=== PATIENT | male | born 1995 | race Caucasian/White ===

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

== ENCOUNTER 2017-04-28 16:02 | Emergency (ER) | payer OTHER ==
[~2017-04-28] VITALS: Ht 170.2 cm; Wt 83.9 kg
[2017-04-28 16:20] VITALS: BP 157/90
--- NOTE | 2017-04-28 16:46 | PHYS DOC ---
Past History Past Medical History: Other Past Surgical History: Tonsillectomy, Other Smoking: Non-smoker Alcohol Use: None Drug Use: None Adult General Chief Complaint Chief Complaint: WRIST PAIN [facility] HPI Patient is a 21 year old male who presents with complaint of left wrist pain. The patient injured his left wrist approximately 1 hour prior to arrival. The patient states he was traveling on his skateboard when his board flipped forward as he tried to reposition his foot. Patient states he fell forward and caught himself with both hands. Patient states that his left wrist took the majority of the weight of the fall. Patient states that he is having pain mostly at the base of his right thumb and mild pain along the medial aspect of the wrist. Patient states that the pain worsens with movement of the thumb and at the wrist. Patient has not taken any medications to help with symptoms at this time. Patient denies head injury or loss of consciousness. Patient rates his pain currently as 7 out of 10. Review of Systems Review of Systems Constitutional: Denies fever or chills [] Eyes: Denies change in visual acuity, redness, or eye pain [] HENT: Denies nasal congestion or sore throat [] Respiratory: Denies cough or shortness of breath [] Cardiovascular: No additional information not addressed in HPI [] GI: Denies abdominal pain, nausea, vomiting, bloody stools or diarrhea [] : Denies dysuria or hematuria [] Musculoskeletal: Left wrist and thumb pain[] Integument: Denies rash or skin lesions [] Neurologic: Denies headache, focal weakness or sensory changes [] Allergies Allergies Allergies Coded Allergies Type Severity Reaction Last Updated Verified No Known Drug Allergies 04/26/16 No Physical Exam Physical Exam Constitutional: Well developed, well nourished, no acute distress, non-toxic appearance. [] HENT: Normocephalic, atraumatic, bilateral external ears normal, oropharynx moist, no oral exudates, nose normal. [] Eyes: PERRLA, EOMI, conjunctiva normal, no discharge. [] Neck: Normal range of motion, no tenderness, supple, no stridor. [] Cardiovascular:Heart rate regular rhythm, no murmur [] Lungs & Thorax: Bilateral breath sounds clear to auscultation [] Abdomen: Bowel sounds normal, soft, no tenderness, no masses, no pulsatile masses. [] Skin: Warm, dry, no erythema, no rash. [] Back: No tenderness, no CVA tenderness. [] Extremities: No obvious deformity, tenderness to palpation over the anatomical snuffbox of left thumb, pain with axial loading of left thumb, sensation and capillary refill intact in all 5 digits of left hand, no cyanosis, no clubbing. [] Neurologic: Alert and oriented X 3, normal motor function, normal sensory function, no focal deficits noted. [] Current Patient Data Vital Signs Vital Signs Date Time Temp Pulse Resp B/P (MAP) Pulse Ox O2 Delivery O2 Flow Rate FiO2 04/28/17 16:20 98.2 65 22 96 Room Air EKG EKG Not performed[] Radiology/Procedures Radiology/[place] [address] IMAGING REPORT Signed PATIENT: ILANA HUNTER ACCOUNT: [id number] : 1995 LOCATION: ER AGE: 21 SEX: M EXAM STATUS: REG ER ORD. PHYSICIAN: EL CAMPBELL MD REASON: left wrist injury status post fall from skateboard PROCEDURE: WRIST 3V LEFT Exam: Left wrist radiograph 04/28/2017 Indication: Left wrist pain after falling Comparison: Left wrist radiograph 04/26/2016 Technique: 3 views of the left wrist are provided. Findings: There is no acute fracture or dislocation. No joint space narrowing. Mild volar soft tissue swelling. No osseous erosion or soft tissue gas. Bone mineralization is within normal limits. Impression: No acute fracture or dislocation. DICTATED AND SIGNED BY: AG JUAREZ MD DATE: 04/28/17 1658 CC: EL CAMPBELL MD; SNEHA SORIANO MD ~ [] Course & Med Decision Making Course & Med Decision Making Pertinent Labs and Imaging studies reviewed. (See chart for details) Patient's x-rays interpreted as negative, however I remain concerned the patient may have a nondisplaced fracture of the scaphoid bone as patient has snuffbox tenderness on exam and pain with axial loading of the thumb. For this reason, the patient was placed in a thumb spica splint. This was applied by the emergency department nurse. My evaluation post splint application showed normal capillary refill and sensation in all 5 digits of the left hand. Advised patient to follow-up in 10-14 days with his primary doctor for reevaluation and repeat imaging of the left wrist for evaluation of possible fracture. The patient will continue on home medications for her symptoms. Advised return to the emergency department for any worsening symptoms. Patient's mother voiced understanding and in agreement with treatment plan. Dragon Disclaimer Dragon Disclaimer This chart was dictated in whole or in part using Voice Recognition software in a busy, high-work load, and often noisy Emergency Department environment. It may contain unintended and wholly unrecognized errors or omissions. Departure Departure: Impression: Primary Impression: Left wrist injury Disposition: HOME, SELF-CARE Condition: IMPROVED Referrals: SNEHA SORIANO MD (PCP) Patient Instructions: Wrist Pain Additional Instructions: Your exam shows medical findings concerning for a possible fracture of your scaphoid bone, which is a wrist bone connects to your thumb. For this reason he were placed in a splint that will need to remain in place over the next 10-14 days until you have followed up with your doctor for repeat x-ray images. Return to the emergency department for any worsening symptoms. Problem Qualifiers Primary Impression: Left wrist injury Encounter type: initial encounter Qualified Codes: S69.92XA - Unspecified injury of left wrist, hand and finger(s), initial encounter EL CAMPBELL MD Apr 28, 2017 16:46
--- NOTE | 2017-04-28 17:02 | RAD ---
Exam: Left wrist radiograph 04/28/2017 Indication: Left wrist pain after falling Comparison: Left wrist radiograph 04/26/2016 Technique: 3 views of the left wrist are provided. Findings: There is no acute fracture or dislocation. No joint space narrowing. Mild volar soft tissue swelling. No osseous erosion or soft tissue gas. Bone mineralization is within normal limits. Impression: No acute fracture or dislocation.
== END 2017-04-28 17:16 | disposition home or self-care (01) ==
LOC: ER 16:02
DX: S69.92XA Unspecified injury of left wrist, hand and finger(s), initial encounter (principal); V00.131A Fall from skateboard, initial encounter; Y93.51 Activity, roller skating (inline) and skateboarding; Y99.8 Other external cause status; Y92.89 Other specified places as the place of occurrence of the external cause
CPT/HCPCS: 29125; 73110; 99284-25

== ENCOUNTER 2018-09-21 15:11 | Emergency (ER) | payer OTHER ==
[~2018-09-21] VITALS: Ht 170.2 cm; Wt 72.6 kg
[2018-09-21 15:20] VITALS: BP 131/82
--- NOTE | 2018-09-21 16:00 | PHYS DOC ---
Past History Past Medical History: Other Past Surgical History: Other Smoking: Non-smoker Alcohol Use: None Drug Use: None Adult General Chief Complaint Chief Complaint: BLOOD IN URINE HPI HPI 22-year-old male presents with hematuria. The patient noticed when he urinated twice a day that appeared to be dark in color and looked to be bloody. Patient had some discomfort with urination. He has had intermittent lower abdominal pain for a long time, but states it was hurting a bit more today. Patient has had urinary tract infections in the past. He denies fever or chills. He has no other complaints. He denies groin trauma. He denies penile discharge. Review of Systems Review of Systems Constitutional: Denies fever or chills [] Eyes: Denies change in visual acuity, redness, or eye pain [] HENT: Denies nasal congestion or sore throat [] Respiratory: Denies cough or shortness of breath [] Cardiovascular: No additional information not addressed in HPI [] GI: Mild lower abdominal pain. Denies nausea, vomiting, bloody stools or diarrhea [] : Dysuria and hematuria[] Musculoskeletal: Denies back pain or joint pain [] Integument: Denies rash or skin lesions [] Neurologic: Denies headache, focal weakness or sensory changes [] Endocrine: Denies polyuria or polydipsia [] All other systems were reviewed and found to be within normal limits, except as documented in this note. Allergies Allergies Allergies Coded Allergies Type Severity Reaction Last Updated Verified No Known Drug Allergies 09/21/18 No Physical Exam Physical Exam Constitutional: Well developed, well nourished, no acute distress, non-toxic appearance. [] HENT: Normocephalic, atraumatic, bilateral external ears normal, oropharynx moist, no oral exudates, nose normal. [] Eyes: PERRLA, EOMI, conjunctiva normal, no discharge. [] Neck: Normal range of motion, no tenderness, supple, no stridor. [] Cardiovascular:Heart rate regular rhythm, no murmur [] Lungs & Thorax: Bilateral breath sounds clear to auscultation [] Abdomen: Mild suprapubic tenderness. [] Skin: Warm, dry, no erythema, no rash. [] Back: No tenderness, no CVA tenderness. [] Extremities: No tenderness, no cyanosis, no clubbing, ROM intact, no edema. [] Neurologic: Alert and oriented X 3, normal motor function, normal sensory function, no focal deficits noted. [] Psychologic: Affect normal, judgement normal, mood normal. [] Current Patient Data Vital Signs Vital Signs Date Time Temp Pulse Resp B/P (MAP) Pulse Ox O2 Delivery O2 Flow Rate FiO2 09/21/18 15:20 98.2 70 18 96 Room Air EKG EKG [] Radiology/Procedures Radiology/Procedures [] Course & Med Decision Making Course & Med Decision Making Pertinent Labs and Imaging studies reviewed. (See chart for details) Patient's urinalysis is negative for blood or infection. This episode was likely sloughing of the bladder wall. If it occurs again, they will follow up with a PCP. He is stable for discharge at this time. [] Dragon Disclaimer Dragon Disclaimer This electronic medical record was generated, in whole or in part, using a voice recognition dictation system. Departure Departure: Impression: Primary Impression: Hematuria Disposition: HOME, SELF-CARE Condition: STABLE Referrals: SNEHA SORIANO MD (PCP) Patient Instructions: Hematuria, Adult Problem Qualifiers Primary Impression: Hematuria Hematuria type: unspecified type Qualified Codes: R31.9 - Hematuria, unspecified CHINO JARA DO Sep 21, 2018 15:59
[2018-09-21 16:04] LABS: CLARITY,URINE HAZY; COLOR,URINE AMBER
[2018-09-21 16:05] LABS: AMORPHOUS SEDIMENT,UR PRESENT /HPF; BACTERIA,URINE FEW /HPF (0-FEW); BILIRUBIN,URINE NEG (NEG); GLUCOSE,URINE NEG (NEG); NITRITE,URINE NEG (NEG); RBC,URINE 0 /HPF (0-2); SQUAMOUS EPITHELIAL CELL,UR OCC /LPF; UROBILINOGEN,URINE 1 mg/dL (0.2 mg/dL); WBC,URINE OCC /HPF (0-4)
== END 2018-09-21 16:30 | disposition home or self-care (01) ==
LOC: ER 15:11
DX: R31.9 Hematuria, unspecified (principal); R10.30 Lower abdominal pain, unspecified
CPT/HCPCS: 81001; 99283

== ENCOUNTER 2020-01-25 19:17 | Emergency (ER) | payer OTHER ==
[~2020-01-25] VITALS: Ht 188 cm; Wt 85.0 kg
[2020-01-25 19:29] VITALS: BP 147/78
[2020-01-25] MEDS ORDERED: valACYclovir 500 MG TABLET. PO STA (20:00)
[2020-01-25] MEDS ORDERED: HYDROcodon/IBUPROFEN 7.5/200MG 1 TAB TABLET PO ONE (20:00)
--- NOTE | 2020-01-25 20:12 | PHYS DOC ---
Past History Past Medical History: No Pertinent History Past Surgical History: Other Smoking: Non-smoker Alcohol Use: Rarely Drug Use: None General Adult EDM: Chief Complaint: SKIN PROBLEM HPI: HPI: ".. Started getting some pain on my Right side... maybe monday night.. then later in week I started getting this rash on my abdomen and back..:'" Patient is a 24 year old male who presents with above hx and clinical Zoster. Patient has red blister eruptions following the T9-T10 dermatome level on right side. Patient is lesions are from midline of abdomen and follows the dermatome clear to the mid back. Patient states burning in area of rash started on Monday however rashes did not begin to appear until Monday or Monday. Patient denies any history of immunosuppression. Patient did have chickenpox as a child and at that time required antivirals because he had such as severe presentation. Patient up-to-date with other vaccinations. No recent travel outside [facility]. Patient normally healthy. Review of Systems: Review of Systems: Constitutional: History of subjective fever Eyes: Denies change in visual acuity HENT: Denies nasal congestion or sore throat Respiratory: Denies cough or shortness of breath Cardiovascular: Denies chest pain or edema GI: Denies abdominal pain, nausea, vomiting, bloody stools or diarrhea : Denies dysuria Musculoskeletal: Denies back pain or joint pain Integument: Complains of a zoster rash on abdomen and back right side Neurologic: Denies headache, focal weakness or sensory changes Endocrine: Denies polyuria or polydipsia Lymphatic: Denies swollen glands Psychiatric: Denies depression or anxiety Heart Score: Risk Factors: Risk Factors: DM, Current or recent (<one month) smoker, HTN, HLP, family history of CAD, obesity. Risk Scores: Score 0 - 3: 2.5% MACE over next 6 weeks - Discharge Home Score 4 - 6: 20.3% MACE over next 6 weeks - Admit for Clinical Observation Score 7 - 10: 72.7% MACE over next 6 weeks - Early Invasive Strategies Family History: Family History: Noncontributory Allergies: Allergies: Allergies Coded Allergies Type Severity Reaction Last Updated Verified No Known Drug Allergies 09/21/18 No Physical Exam: PE: Constitutional: Well developed, well nourished, in acute distress, non-toxic appearance. [] HENT: Normocephalic, atraumatic, bilateral external ears normal, oropharynx moist, no oral exudates, nose normal. [] Eyes: PERRLA, EOMI, conjunctiva normal, no discharge. Glasses Neck: Normal range of motion, no tenderness, supple, no stridor. [] Cardiovascular:Heart rate regular rhythm, no murmur [] Lungs & Thorax: Bilateral breath sounds clear to auscultation [] Abdomen: Bowel sounds normal, soft, no tenderness, no masses, no pulsatile masses. [] No liver edge detected. Skin: Warm, dry, no erythema, no rash. [] Except findings of zoster rash along the dermatome on T9 and T10 right side as per HPI Back: No tenderness, no CVA tenderness. [] Extremities: No tenderness, no cyanosis, no clubbing, ROM intact, no edema. [] Neurologic: Alert and oriented X 3, normal motor function, normal sensory function, no focal deficits noted. [] Psychologic: Affect anxious, judgement normal, mood normal. [] Current Patient Data: Vital Signs: Vital Signs Date Time Temp Pulse Resp B/P (MAP) Pulse Ox O2 Delivery O2 Flow Rate FiO2 01/25/20 19:29 98.1 78 16 147/78 (101) 98 Room Air EKG: EKG: [] Radiology/Procedures: Radiology/Procedures: [] Course & Med Decision Making: Course & Med Decision Making Pertinent Labs and Imaging studies reviewed. (See chart for details) Take tylenol and ibuprofen for pain. Marked pain take Vicoprofen. Take Valtrex 1000 mg every 8 hrs. Follow up with [facility]. Patient to practice contact contact precautions because lesions are infectious until rash resolves. Self isolate. Wear a mask when outside the home and in contact with other individuals mask should cover nose and mouth. Return if any concerns. Sometimes topical lidocaine patches are helpful for severe pain from the zoster or shingles rash. Impression: 1. Zoster at T9 and T10 dermatome on right side [] Dragon Disclaimer: Dragon Disclaimer: This electronic medical record was generated, in whole or in part, using a voice recognition dictation system. Departure Departure: Disposition: 01 HOME/RESIDENCE PRIOR TO ADM Condition: STABLE Referrals: SNEHA SORIANO MD (PCP) Scripts Hydrocodone/Ibuprofen (HYDROCODONE-IBUPROFEN 7.5-200 ) 1 Each Tablet 1 TAB PO PRN Q6HRS PRN for PAIN, #30 TAB 0 Refills Prov: SONIDO MUKHERJEE MD 01/25/20 Valacyclovir Hcl (VALTREX) 1,000 Mg Tablet 1000 MG PO TID for zoster for 7 Days, #21 TAB Prov: SONIDO MUKHERJEE MD 01/25/20 Justification of Admission: Justification of Admission: Justification of Admission Dx: N/A Dragon Disclaimer This chart was dictated in whole or in part using Voice Recognition software in a busy, high-work load, and often noisy Emergency Department environment. It may contain unintended and wholly unrecognized errors or omissions. SONIDO MUKHERJEE MD Jan 25, 2020 20:12
[2020-01-25] MEDS ORDERED: HYDR-1179 PO (20:20)
[2020-01-25] MEDS ORDERED: VALA10005 PO (20:20)
[2020-01-25 20:32] LABS: BASO % 0 % (0-3); EOS # 0.8 x10^3/uL (0.0-0.7); EOS % 10 % (0-3); HEMATOCRIT 44.1 % (39.0-53.0); HEMOGLOBIN 14.9 g/dL (13.0-17.5); LYMPH # 1.7 x10^3/uL (1.0-4.8); LYMPH % 23 % (24-48); MEAN CORPUSCULAR HEMOGLOBIN 30 pg (25-35); MEAN CORPUSCULAR HGB CONC 34 g/dL (31-37); MEAN CORPUSCULAR VOLUME 88 fL (79-100); MONO # 0.9 x10^3/uL (0.0-1.1); MONO % 12 % (0-9); NEUT # 4.1 x10^3uL (1.8-7.7); NEUT % 55 % (31-73); PLATELET COUNT 216 x10^3/uL (140-400); RED BLOOD COUNT 5.04 x10^6/uL (4.30-5.70); RED CELL DISTRIBUTION WIDTH 13.5 % (11.5-14.5); WHITE BLOOD COUNT 7.4 x10^3/uL (4.0-11.0)
[2020-01-25 20:40] LABS: CREATININE 1.2 mg/dL (0.7-1.3); GFR 75.7
[2020-01-25 21:12] LABS: C REACTIVE PROTEIN 4.7 mg/L (0-3.3); DIRECT BILIRUBIN 0.1 mg/dL (0.0-0.2); TOTAL BILIRUBIN 0.8 mg/dL (0.2-1.0); TOTAL PROTEIN 7.9 g/dL (6.4-8.2)
[2020-01-25 21:13] LABS: CALCIUM 8.7 mg/dL (8.5-10.1)
== END 2020-01-25 20:54 | disposition home or self-care (01) ==
LOC: ER 19:17
DX: B02.9 Zoster without complications (principal)
CPT/HCPCS: 36415; 80048; 80076; 85025; 86140; 99283

== ENCOUNTER 2021-06-12 19:30 | Emergency (ER) | payer OTHER ==
[~2021-06-12] VITALS: Ht 170.2 cm; Wt 78.6 kg
[~2021-06-12 19:30] MED LIST: HYDR-1179 PO; VALA10005 PO
[2021-06-12 20:44] VITALS: BP 118/83
[2021-06-12] MEDS ORDERED: LIDO:MAALOX 1:1 20 ML SINGLE DOSE. PO ONE (21:30)
[2021-06-12 21:39] LABS: BASO % 0 % (0-3); EOS # 0.9 x10^3/uL (0.0-0.7); EOS % 8 % (0-3); HEMATOCRIT 46.3 % (39.0-53.0); HEMOGLOBIN 15.4 g/dL (13.0-17.5); LYMPH # 2.4 x10^3/uL (1.0-4.8); LYMPH % 20 % (24-48); MEAN CORPUSCULAR HEMOGLOBIN 29 pg (25-35); MEAN CORPUSCULAR HGB CONC 33 g/dL (31-37); MEAN CORPUSCULAR VOLUME 88 fL (79-100); MONO # 1.1 x10^3/uL (0.0-1.1); MONO % 9 % (0-9); NEUT # 7.5 x10^3uL (1.8-7.7); NEUT % 63 % (31-73); PLATELET COUNT 267 x10^3/uL (140-400); RED BLOOD COUNT 5.27 x10^6/uL (4.30-5.70)
[2021-06-12 21:44] LABS: CALCIUM 9.8 mg/dL (8.5-10.1); GFR 92.6; POTASSIUM 3.9 mmol/L (3.5-5.1)
--- NOTE | 2021-06-12 22:13 | PHYS DOC ---
Past History Past Medical History: No Pertinent History (OLIVERIO FERRER APRN) Past Surgical History: Tonsillectomy, Other Additional Past Surgical Histo: Hand surgery; EGD; throat stretching (OLIVERIO FERRER APRN) Smoking: Non-smoker Alcohol Use: None Drug Use: None (OLIVERIO FERRER APRN) Adult General Chief Complaint Chief Complaint: ABDOMINAL PAIN HPI HPI Patient is a 25-year-old male presents to the emergency department turning epigastric burning not relieved with his normal Tums and Maalox. Patient reports he has a history of esophagitis, states he drank alcohol couple days ago and noticed the next day he had epigastric burning consistent with his esophagitis problems. Patient states he is supposed to take a PPI however does not take as recommended by his primary care physician. Patient denies nausea, vomiting or diarrhea. Denies chest pains or shortness of breath fever or chills. Patient denies of the physical complaints or physical concerns. (OLIVERIO FERRER APRN) Review of Systems Review of Systems 14 body systems of review of systems have been reviewed. See HPI for pertinent positives and negative responses, otherwise all other systems are negative, nonpertinent or noncontributory. Constitutional: Negative except as outlined in HPI above. Skin: Negative except as outlined in HPI above. Eyes: Negative except as outlined in HPI above. HENT: Negative except as outlined in HPI above. Respiratory: Negative except as outlined in HPI above. Cardiovascular: Negative except as outlined in HPI above. GI: Negative except as outlined in HPI above. : Negative except as outlined in HPI above. Musculoskeletal: Negative except as outlined in HPI above. Integument: Negative except as outlined in HPI above. Neurologic: Negative except as outlined in HPI above. Endocrine: Negative except as outlined in HPI above. Lymphatic: Negative except as outlined in HPI above. Psychiatric: Negative except as outlined in HPI above. (OLIVERIO FERRER APRN) Current Medications Current Medications Current Medications Medications (Trade) Dose Ordered Sig/Fan Start Time Stop Time Status Last Admin Dose Admin Multi-Ingredient Mouthwash/Gargle (Gi Cocktail) 20 ml 1X ONCE 06/12/21 21:30 06/12/21 21:31 DC 06/12/21 21:15 20 ML (OLIVERIO FERRER APRN) Allergies Allergies Allergies Coded Allergies Type Severity Reaction Last Updated Verified No Known Drug Allergies 09/21/18 No (OLIVERIO FERRER APRN) Physical Exam Physical Exam Constitutional: Well developed, well nourished, no acute distress, non-toxic appearance. 25-year-old male in no apparent distress. HENT: Normocephalic, atraumatic. Eyes: Conjunctiva normal, no discharge. Neck: Normal range of motion, no stridor. Cardiovascular: No cyanosis appreciated, distal cap refill less than 2 seconds. Lungs & Thorax: Patient is in no respiratory distress, no audible adventitious lung sounds appreciated. Abdomen: No abnormalities noted of the abdomen, nontender to palpation, normal bowel sounds all 4 quadrants. No discoloration of the skin or bruising or ecchymotic areas of the abdomen appreciated. No distention appreciated. Skin: Warm, dry, no erythema, no rash. Back: No tenderness, no deformities. Extremities: No tenderness, no cyanosis, no clubbing, ROM intact, no edema. Neurologic: Alert and oriented X 3, normal motor function, normal sensory function, no focal deficits noted. Psychologic: Affect normal, judgement normal, mood normal. (OLIVERIO FERRER APRN) Current Patient Data Vital Signs Vital Signs Date Time Temp Pulse Resp B/P (MAP) Pulse Ox O2 Delivery O2 Flow Rate FiO2 06/12/21 20:44 98.1 100 20 118/83 (95) 97 Room Air Lab Results Laboratory Tests Test 06/12/21 21:10 White Blood Count 12.0 x10^3/uL (4.0-11.0) H Red Blood Count 5.27 x10^6/uL (4.30-5.70) Hemoglobin 15.4 g/dL (13.0-17.5) Hematocrit 46.3 % (39.0-53.0) Mean Corpuscular Volume 88 fL (79-100) Mean Corpuscular Hemoglobin 29 pg (25-35) Mean Corpuscular Hemoglobin Concent 33 g/dL (31-37) Red Cell Distribution Width 13.0 % (11.5-14.5) Platelet Count 267 x10^3/uL (140-400) Neutrophils (%) (Auto) 63 % (31-73) Lymphocytes (%) (Auto) 20 % (24-48) L Monocytes (%) (Auto) 9 % (0-9) Eosinophils (%) (Auto) 8 % (0-3) H Basophils (%) (Auto) 0 % (0-3) Neutrophils # (Auto) 7.5 x10^3uL (1.8-7.7) Lymphocytes # (Auto) 2.4 x10^3/uL (1.0-4.8) Monocytes # (Auto) 1.1 x10^3/uL (0.0-1.1) Eosinophils # (Auto) 0.9 x10^3/uL (0.0-0.7) H Basophils # (Auto) 0.0 x10^3/uL (0.0-0.2) Sodium Level 140 mmol/L (136-145) Potassium Level 3.9 mmol/L (3.5-5.1) Chloride Level 101 mmol/L (98-107) Carbon Dioxide Level 30 mmol/L (21-32) Anion Gap 9 (6-14) Blood Urea Nitrogen 8 mg/dL (8-26) Creatinine 1.0 mg/dL (0.7-1.3) Estimated GFR (Cockcroft-Gault) 92.6 Glucose Level 90 mg/dL (70-99) Calcium Level 9.8 mg/dL (8.5-10.1) Lipase 51 U/L (73-393) L (OLIVERIO FERRER APRN) EKG EKG [] (OLIVERIO FERRER APRN) Radiology/Procedures Radiology/Procedures [] (OLIVERIO FERRER APRN) Heart Score C/O Chest Pain: No Risk Factors: Risk Factors: DM, Current or recent (<one month) smoker, HTN, HLP, family history of CAD, obesity. Risk Scores: Risk Factors: DM, Current or recent (<one month) smoker, HTN, HLP, family history of CAD, obesity. (OLIVERIO FERRER APRN) Course & Med Decision Making Course & Med Decision Making Pertinent Labs and Imaging studies reviewed. (See chart for details) 25-year-old male, vital signs reviewed, resents emerged from concerning epigastric burning consistent with his esophagitis. Physical examination is concerning for dyspepsia. Will order GI cocktail. Will order CBC, BMP, lipase pending GI cocktail results. Patient's labs unremarkable, upon reevaluation of the patient, patient reports total pain relief and is ready to go home. Patient states his pain and burning is a 0 on a 1-10 scale. Discussed with patient continuing his PPI as directed by his primary care physician. Patient gave verbal understanding of and is amenable to ED discharge planning. Strict follow-up with primary care soon, return to ER precautions or concerns. Discussed with the patient all findings and diagnostic testing as well as the need to follow-up with their primary care provider for further evaluation and treatment or return to the ED if any new or worsening symptoms. Strict return precautions were also discussed at length, the patient voiced understanding and agreement with the discharge planning. The patient was nontoxic in appearance, in no apparent distress, and hemodynamically stable at the time of disposition. (OLIVERIO FERRER APRN) Dragon Disclaimer Dragon Disclaimer This electronic medical record was generated, in whole or in part, using a voice recognition dictation system. (OLIVERIO FERRER APRN) Departure Departure: Impression: Primary Impression: Dyspepsia Disposition: HOME / SELF CARE / HOMELESS Condition: GOOD Referrals: KUSH WEINBERG MD (PCP) Patient Instructions: Indigestion Additional Instructions: You are seen today in the emergency department for GI upset. You were given a GI cocktail which you reported helped tremendously, a extensive GI lab work-up was performed today in the emergency department did not show any concerning findings of pancreatitis or gallbladder disease or infectious process. Please consider taking your GI medications as prescribed by your primary care physician. Follow-up with your primary care physician soon for consideration of GI medication change. Turn the emergency department for worsening symptoms or other concerns. Thank you for visiting our Emergency Department. It was a pleasure taking care of you today in the emergency department and we appreciate you trusting us with your care. If any additional problems come up don't hesitate to return to visit us. Please follow up with your primary care provider so they can plan additional care if needed and know about the problem that you had. If symptoms worsen come back to the Emergency Department. Any concerning symptoms that start such as chest pain, shortness of air, weakness or numbness on one side of the body, running high fevers or any other concerning symptoms return to the ER.EMERGENCY DEPARTMENT GENERAL DISCHARGE INSTRUCTIONS Thank you for coming to [facility] (ED) today and trusting us with you care. We trust that you had a positivie experience in our Emergency Department. If you wish to speak to the department management, you may call the director at [phone]. YOUR FOLLOW UP INSTRUCTIONS ARE FOLLOWS: 1. Do you have a private Doctor? If you do not have a private doctor, please ask for a resource list of physicians or clinics that may be able to assist you with follow up care. 2. The Emergency Physician has interpreted your x-rays. The X-Ray specialist will also review them. If there is a change in the findings, you will be notified in 48 hours when at all possible. 3. A lab test or culture has been done, your results will be reviewed and you will be notified if you need a change in treatment. ADDITIONAL INSTRUCTIONS AND INFORMATION: 1. Your care today has been supervised by a physician who is specially trained in emergency care. Many problems require more than one evaluation for a complete diagnosis and treatment. We recommend that you schedule your follow up appointment as recommended to ensure complete treatment of you illness or injury. If you are unable to obtain follow up care and continue to have a problem, or if your condition worsens, we recommend that you return to the ED. 2. We are not able to safely determine your condition over the phone nor are we able to give sound medical advice over the phone. For these safety reasons, if you call for medical advice we will ask you to come to the ED for further evaluation. 3. If you have any questions regarding these discharge instructions please call the ED at [phone]. SAFETY INFORMATION: In the interest of safety, wellness, and injury prevention; we encourage you to wear your sealbelt, if you smoke; quite smoking, and we encourage family to use a protective helmet for bicycling and other sporting events that present an increased risk for head injury. IF YOUR SYMPTOMS WORSEN OR NEW SYMPTOMS DEVELOP, OR YOU HAVE CONCERNS ABOUT YOUR CONDITION; OR IF YOUR CONDITION WORSENS WHILE YOU ARE WAITING FOR YOUR FOLLOW UP APPOINTMENT; EITHER CONTACT YOUR PRIMARY CARE DOCTOR, THE PHYSICIAN WHOSE NAME AND NUMBER YOU WERE GIVEN, OR RETURN TO THE ED IMMEDIATELY. Attending Signature Attending Signature I have participated in the care of this patient and I have reviewed and agree with all pertinent clinical information above including history, exam, and recommendations. (SONIDO MUKHERJEE MD) OLIVERIO FERRER APRN Jun 12, 2021 22:13 SONIDO MUKHERJEE MD Jun 13, 2021 03:10
== END 2021-06-12 22:35 | disposition home or self-care (01) ==
LOC: ER 19:30
DX: R10.13 Epigastric pain (principal)
CPT/HCPCS: 36415; 80048; 83690; 85025; 99283-25